=== PATIENT | female | born 1980 | race Caucasian/White ===

== ENCOUNTER 2018-11-14 15:18 | Emergency (ER) | payer MEDICAID, OTHER ==
[~2018-11-14] VITALS: Ht 154.9 cm; Wt 81.5 kg
[2018-11-14 15:29] VITALS: BP 132/76; PULSE 78; RESP 19; Ht 154.9 cm; Wt 81.5 kg
--- NOTE | 2018-11-14 16:56 | ERD ---
ER Documentation Chief Complaint Chief Complaint VAGINAL BLEEDING; LOWER ABDOMINAL CRAMPING; USED 20 PAD/DAY SOAKED HPI 38-year-old female, A1, with LMP 4 days ago presents the emergency department, complaining of persistent vaginal bleeding for 4 days, associated with mild intermittent, arm pain pain. The patient is concerned about possible anemia. However, she denies palpitations dizziness or lightheadedness.. ROS All systems reviewed and are negative except as per history of present illness. Medications Home Meds Active Scripts Ibuprofen* (Motrin*) 600 Mg Tab, 600 MG PO Q8, #15 TAB Prov:MAURIZIO FRANCOIS MD 11/14/18 Medroxyprogesterone Acetate* (Provera*) 10 Mg Tablet, 10 MG PO DAILY, #9 TAB 3 tab PO day one, 2 tab po day 2, 1 tab po x 4d Prov:MAURIZIO FRANCOIS MD 11/14/18 FmHx Family History: No diabetes, No coronary disease Physical Exam Vitals Vital Signs Date Temp Pulse Resp B/P (MAP) Pulse Ox O2 O2 Flow FiO2 Time Delivery Rate 11/14/18 98.6 78 19 132/76 100 15:29 (94) Physical Exam Const: No acute distress Head: Atraumatic Eyes: Normal Conjunctiva ENT: Normal External Ears, Nose and Mouth. Neck: Full range of motion. No meningismus. Resp: Clear to auscultation bilaterally Cardio: Regular rate and rhythm, no murmurs Abd: Soft, non tender, non distended. Normal bowel sounds . Normal external genitalia, mild to moderate menstrual flow. No cervical motion tenderness Skin: No petechiae or rashes Back: No midline or flank tenderness Ext: No cyanosis, or edema Neur: Awake and alert Psych: Normal Mood and Affect Result Diagram: 11/14/18 1716 11/14/18 1716 Results 24 hrs Laboratory Tests Test 11/14/18 17:16 11/14/18 17:22 11/14/18 17:24 White Blood Count 6.1 10^3/ul Red Blood Count 4.28 10^6/ul Hemoglobin 11.4 g/dl Hematocrit 37.3 % Mean Corpuscular Volume 87.1 fl Mean Corpuscular Hemoglobin 26.6 pg Mean Corpuscular 30.6 g/dl Hemoglobin Concent Red Cell Distribution Width 14.1 % Platelet Count 340 10^3/UL Mean Platelet Volume 10.9 fl Immature Granulocytes % 0.200 % Neutrophils % 71.1 % Lymphocytes % 18.0 % Monocytes % 9.5 % Eosinophils % 0.5 % Basophils % 0.7 % Nucleated Red Blood Cells % 0.0 /100WBC Immature Granulocytes # 0.010 10^3/ul Neutrophils # 4.3 10^3/ul Lymphocytes # 1.1 10^3/ul Monocytes # 0.6 10^3/ul Eosinophils # 0.0 10^3/ul Basophils # 0.0 10^3/ul Nucleated Red Blood Cells # 0.0 10^3/ul Sodium Level 139 mmol/L Potassium Level 4.5 mmol/L Chloride Level 103 mmol/L Carbon Dioxide Level 28 mmol/L Anion Gap 8 Blood Urea Nitrogen 11 mg/dl Creatinine 0.71 mg/dl Est Glomerular Filtrat Rate mL/min > 60 mL/min Glucose Level 94 mg/dl Calcium Level 9.2 mg/dl Bedside Urine pH (LAB) 6.0 Bedside Urine Protein (LAB) 1+ Bedside Urine Glucose (UA) Negative Bedside Urine Ketones (LAB) Negative Bedside Urine Blood 3+ Bedside Urine Nitrite (LAB) Negative Bedside Urine Leukocyte Esterase 1+ (L POC Beta HCG, Qualitative NEGATIVE Procedures/MDM Vital signs stable, Physical exam unremarkable, abdomen soft, nontender. Patient hemodynamically stable. Differential diagnosis include but not limited to: , ovarian cyst, fibroids, endometriosis, malignancy, dysfunctional bleeding, hematologic condition. Low suspicion for PID, no signs of hypovolemic shock. Pertinent Data: test: Negative Labs: CBC: Mild anemia. Physical examination and clinical presentation consistent most likely with menstrual bleeding. During the ED course the patient remained stable, no new complaints. Results and clinical impression discussed with patient who agrees with management. The patient is stable to be treated outpatient and will be discharged home with a Rx for Provera, some side effects of prescribed medications (headache, rash, nausea, vomiting, diarrhea, drowsiness, hab ituation, bleeding, hypertension, interactions with other medications) were reviewed. The patient was instructed to follow up with the primary care provider in the next 48h. If symptoms persist, worsen or new symptoms develop, then patient should return to the ED immediately. Instructions explained and given directly by me to the patient with acknowledgment and demonstrated understanding. Disclaimer: Inadvertent spelling and grammatical errors are likely due to EHR/dictation software use and do not reflect on the overall quality of patient care. Also, please note that the electronic time recorded on this note does not necessarily reflect the actual time of the patient encounter. Departure Diagnosis: Primary Impression: Menometrorrhagia Condition: Stable Additional Instructions: Muchas andrei por [facility] para price servicio. Esperamos que en price visita a la mary jane de emergencia price problema medico haya sido solucionado y que se sienta mucho mejor. Para estar seguros que price mejoria sigue en proceso, le pedimos el favor de hacer gil tye de seguimiento medico con price doctor primario en los proximos 2-4 pavon. Lleve con usted estos documentos y las medicinas recetadas. Si issac sintomas empeoran, NO SE ESPERE, por favor regrese a mary jane de emergencia I NMEDIATAMENTE. En marifer que usted no tenga un mdico de atencin primaria: Llame al mdico o clnica comunitaria de referencia que aparece abajo savage las horas de consultorio para hacer gil tye para que le vean. CLINICAS: [facility] [phone] [facility] [phone] [facility] [phone] [facility] [phone] [facility] [phone] [address] [facility]. [phone] MAURIZIO ROMERO MD Nov 14, 2018 16:56
[2018-11-14] MEDS ORDERED: MEDR10TA2 PO (18:05)
[2018-11-14] MEDS ORDERED: IBUP-1542 PO (18:05)
== END 2018-11-14 19:37 | disposition left against medical advice (07) ==
LOC: FTE 15:18
DX: N92.1 Excessive and frequent menstruation with irregular cycle (principal)
CPT/HCPCS: 80048; 81003; 81025; 85025; Z7502; 99283